=== PATIENT | female | born 1985 | race Caucasian/White ===

== ENCOUNTER 2017-01-01 12:30 | Day surgery (SDC) | payer OTHER ==
[~2017-01-01] VITALS: Ht 149.9 cm; Wt 86.0 kg
[~2017-01-01 12:30] MED LIST: ABILIFY30 MG PO; AMBIEN10 MG PO; BENADRYL25 MG PO; BUPROPION XL150 MG PO; BUSPAR15 MG PO; BUSPIRONE HCL30 MG PO; CIPRO250 MG PO; CIPRO500 MG PO; CLEOCIN300 MG PO; DEPO-PROVER400 MG/ML; DESYREL100 MG PO; DESYREL300 MG PO; DITROPAN5 MG PO; ELAVIL25 MG PO; ELMIRON100 MG PO; ESKALITH300 MG PO; FLEXERIL10 MG PO; FOLIC ACID1 MG PO; GEODON80 MG PO; LAMICTAL100 MG PO; LITHIUM CARBON450 MG PO; Lithium Carbonate PO; MACRODANTIN25 MG; MELOXICAM; MOTRIN800 MG PO; MYRBETRIQ50 MG PO; Motrin PO; NAPROSYN500 MG PO; NITROFURANTOIN50 MG PO; NORCO 5/3251 TABLET PO; NORETHINDRONE AC5 MG PO; PERCOCET 5/31 TABLET PO; PREMARIN0.625 MG PO; PREMARIN0.9 MG PO; PREMPHASE PO; Percocet 5/325,Endoc PO; SANCTURA XR60 MG PO; SANTURA; TRAZODONE HCL150 MG PO; TRILEPTAL300 MG PO; VAGIFEM10 MCG VG; VIBRAMYCIN100 MG PO; VIIBRYD40 MG PO; ZOFRAN ODT4 MG PO; ZOFRAN4 MG PO
[2017-01-01 12:48] VITALS: BP 11/58
[2017-01-01 18:40] VITALS: BP 125/78
[2017-01-01 19:16] VITALS: BP 125/70
== END 2017-01-01 19:19 | disposition home or self-care (01) ==
LOC: SDC 12:30
DX: M17.12 Unilateral primary osteoarthritis, left knee (principal); M22.12 Recurrent subluxation of patella, left knee; M25.562 Pain in left knee; E66.9 Obesity, unspecified; Z68.39 Body mass index [BMI] 39.0-39.9, adult; M67.52 Plica syndrome, left knee
CPT/HCPCS: C1713; J0171; J0690; J1100; J1170; J2405; J2765; J3010

== ENCOUNTER 2017-09-26 14:51 | Emergency (ER) | payer OTHER ==
[~2017-09-26] VITALS: Ht 149.9 cm; Wt 94.8 kg
[~2017-09-26 14:51] MED LIST changes: +ANTIVERT25 MG PO
[2017-09-26 15:36] LABS: HEMATOCRIT 38.8 % (36.0-46.0); HEMOGLOBIN 13.7 G/DL (11.9-15.5); MCH 31.6 PG (29.0-34.0); MCHC 35.3 G/DL (30.0-36.0); MCV 89.4 FL (83-99); PLATELET COUNT 297 K/uL (156-360); RBC DIS.WIDTH-CV 12.1 % (11.8-14.6); RBC DIS.WIDTH-SD 39.5 % (39-53); RED BLOOD COUNT 4.34 M/uL (3.80-5.20); WHITE BLOOD COUNT 5.6 K/uL (4.1-10.2)
[2017-09-26 15:47] LABS: CHLORIDE 109 mEq/L (99-109); POTASSIUM 3.9 mEq/L (3.7-5.4); SODIUM 142 mEq/L (136-147)
[2017-09-26 15:48] LABS: GLUCOSE 91 mg/dL (70-99)
[2017-09-26 15:52] LABS: CREATININE 0.8 mg/dL (0.6-1.3); GFR ESTIMATE (CALCULATED) > 59 mL/min/
[2017-09-26 15:53] LABS: UREA NITROGEN (BUN) 9 mg/dL (9-23)
[2017-09-26 15:57] LABS: TROP-I INTERPRETATION NEGATIVE; TROPONIN-I < 0.01 ng/mL (0.0-0.30)
[2017-09-26 18:11] LABS: ALBUMIN 4.4 g/dL (3.2-4.8)
[2017-09-26 18:16] LABS: TOTAL BILIRUBIN 0.2 mg/dL (0.0-1.0)
[2017-09-26 18:17] LABS: ALKALINE PHOSPHATASE 59 IU/L (3-129)
[2017-09-26 18:19] LABS: AST (GOT) 18 IU/L (2-34); DIRECT BILIRUBIN 0.1 mg/dL (0.0-0.3)
[2017-09-26 18:20] LABS: ALT (GPT) 23 IU/L (3-49)
[2017-09-26 18:26] LABS: QUANTITATIVE HCG < 4.0 MIU/ML
[2017-09-26 18:36] LABS: APPEARANCE CLEAR ((CLEAR)); BILIRUBIN NEGATIVE; BLOOD NEGATIVE; COLOR YELLOW ((YELLOW)); GLUCOSE (STRIP) NEGATIVE; KETONES NEGATIVE; LEUKOCYTES NEGATIVE; NITRITE NEGATIVE; PROTEIN (STRIP) NEGATIVE; UROBILINOGEN 0.2 MG/DL (0.2-1.0)
[2017-09-26] MEDS ORDERED: TRANSDERM-SCOP1 EACH TD (19:00)
[2017-09-26 19:22] VITALS: BP 137/99
== END 2017-09-26 19:23 | disposition home or self-care (01) ==
LOC: EME 14:51
PROVIDERS: Nurse Practitioner Family
DX: R42 Dizziness and giddiness (principal); Z90.710 Acquired absence of both cervix and uterus; Z79.890 Hormone replacement therapy
CPT/HCPCS: 71046; 80048; 80076; 81003; 84484; 84702; 85027; 87502; 93005; 99281; 99284